=== PATIENT | male | born 1990 | race Hispanic/Latino ===

== ENCOUNTER 2024-08-08 07:46 | Emergency (ER) | payer SELFPAY ==
[~2024-08-08] VITALS: Ht 167.6 cm; Wt 118.0 kg
[2024-08-08 08:01] VITALS: BP 131/76
[2024-08-08 08:13] VITALS: BP 120/75
[2024-08-08 08:29] LABS: BASO% 0.3 % (0-3); EOS% 1.1 % (0-8); HEMATOCRIT 44.3 % (39.0-50.0); HEMOGLOBIN 15.8 g/dl (14.0-18.0); IMMATURE GRANULOCYTES 0.2 % (0.0-5.0); LYMPH% 33.4 % (15-41); MEAN CELL VOLUME 88.1 fL CALC (80.0-100.0); MEAN CORPUSCULAR HGB 31.4 pG CALC (26.0-32.0); MEAN CORPUSCULAR HGB CONC 35.7 g/dL CAL (32.0-36.0); MONO% 8.4 % (2-13); NEUT# 5.59 thou/uL (1.82-7.42); NEUT% 56.6 % (42-76); RED BLOOD COUNT 5.03 mill/uL (4.70-6.10); RED CELL DISTRI WIDTH 11.7 % (11.5-15.5)
[2024-08-08 08:29] LABS: URINE BILIRUBIN - DIPSTICK Negative (NEGATIVE); URINE BLOOD DIPSTICK Trace-intact (NEGATIVE); URINE GLUCOSE - DIPSTICK Negative (NEGATIVE); URINE KETONE Negative (NEGATIVE); URINE LEUK ESTERASE Negative (NEGATIVE); URINE NITRITE - DIPSTICK Negative (Negative); URINE PROTEIN - DIPSTICK Negative (NEG-TRACE); URINE UROBILINOGEN - DIPSTICK 0.2 E.U./dL (0.2)
[2024-08-08 08:30] VITALS: BP 128/73
[2024-08-08 08:35] LABS: URINE COLOR Yellow
[2024-08-08 08:41] LABS: ALBUMIN 4.1 g/dL (3.2-5.0); BILIRUBIN, TOTAL 0.6 mg/dL (0.2-1.3); CREATININE 0.8 mg/dL (0.7-1.3); POTASSIUM 3.9 mmol/l (3.5-5.1); TOTAL PROTEIN 6.9 g/dL (6.3-8.2)
[2024-08-08 08:43] VITALS: BP 123/73
[2024-08-08 09:00] VITALS: BP 107/59
[2024-08-08 09:24] VITALS: BP 107/59
== END 2024-08-08 09:30 | disposition home or self-care (01) | DRG 392 ==
LOC: ED 07:46
PROVIDERS: Family Medicine
DX: R19.7 Diarrhea, unspecified (principal); F17.210 Nicotine dependence, cigarettes, uncomplicated